=== PATIENT | male | born 1955 | race Caucasian/White ===

== ENCOUNTER → 2018-04-30 10:44 | Outpatient (CLI) | payer OTHER, SELFPAY ==
--- NOTE | 2018-04-30 | DI.ECHO.S_ITS ---
[facility]---------+ [facility] +---------+ : : [address] [place] : : : : [id number] : : : : Phone: [phone]+ Echocardiogram Report + + :Name: MORGAN SOLIS Study Date: 04/30/2018 Height: 70 in : :[facility] Weight: 216 lb : : Gender: Male BSA: 2.2 m2 : :: 1955 Age: 62 yrs BP: 118/70 mmHg: :Reason For Study: Cardiomegaly : : Performed By: Pricilla Eden : :Referring: MARY HARDIN : + + Interpretation Summary 1) Upper normal left ventricular size with low normal systolic function (EF about 50%). 2) LV apex appears trabeculated. Differential diagnosis include LV non- compaction. 3) Grossly, normal right ventricular size and function . 4) There is mild to moderate mitral regurgitation. 5) No prior echo available for comparison. Recommend cardiac MRI to assess for LV non-compaction. Procedure: A two-dimensional transthoracic echocardiogram with color flow and Doppler was performed. The study quality was technically difficult. A contrast injection of Definity was performed to improve assessment of LV function. A total of 1.5 cc of contrast was given. The patient was in normal sinus rhythm during the exam. Left Ventricle: There is normal left ventricular wall thickness. Left ventricular size is at the upper limits of normal. LV apex appears trabeculated. Left ventricular ejection fraction is estimated to be 50 +/- 5%. There are no focal wall motion abnormalities. Diastolic function could not be accurately assessed due to unobtainable data. Right Ventricle: The right ventricle grossly appears normal in size with probable normal systolic function. Atria: The left atrial size is normal. Right atrial size is normal. The interatrial septum is intact with no evidence for an atrial septal defect. Mitral Valve: The mitral valve is grossly normal. There is mild to moderate mitral regurgitation. Aortic Valve: The aortic valve is trileaflet. The aortic valve opens well. There is no aortic valve stenosis. There is mild aortic regurgitation. Tricuspid Valve: The tricuspid valve is normal in structure and function. No tricuspid regurgitation. Pulmonic Valve: The pulmonic valve is not well seen, but is grossly normal. There is trace pulmonic regurgitation. Great Vessels: The aortic root is normal size. The dimensions of the ascending aorta are normal. The IVC is of normal diameter and collapses greater than 50% with a sniff. This suggests a low right atrial pressure of 3 mm Hg. Pericardium/ Pleura There is no pericardial effusion. There is no pleural effusion. MMode/2D Measurements & Calculations LVIDd: 5.6 cm Ao root diam: 3.4 cm LVIDs: 4.1 cm Aortic Jxn: 3.2 cm FS: 27.0 % asc Aorta Diam: 3.3 cm EPSS: 1.1 cm Ao Arch Diam (Prox Trans): 3.2 cm IVSd: 0.82 cm LVPWd: 0.73 cm LV hall. diameter/BSA (cm/m^2): 2.6 LV sys. diameter/BSA (cm/m^2): 1.9 LA dimension: 2.7 cm RA long axis: 4.6 cm LA A2 area: 18.6 cm2 RA area: 16.5 cm2 LA A4 area: 19.1 cm2 RA vol: 50.8 ml LA length (vol): 5.0 cm RA : 23.5 ml/m2 LA vol: 60.2 ml IVC diam: 1.1 cm LA vol index: 27.9 ml/m2 RVDd major: 6.3 cm RVD1 (basal): 4.7 cm RVD2 (mid): 3.7 cm Doppler Measurements & Calculations Ao V2 max: 116.2 cm/sec MV E max parker: 52.9 cm/sec Ao V2 mean: 84.1 cm/sec MV A max parker: 74.0 cm/sec Ao max P.4 mmHg MV E/A: 0.71 Ao mean P.1 mmHg Med Peak E' Parker: 5.9 cm/sec Ao V2 VTI: 23.8 cm E/E' med: 9.0 Lat Peak E' Parker: 8.3 cm/sec E/E' lat: 6.4 E/e' average: 7.7 MV dec time: 0.38 sec MV P1/2t: 112.1 msec PA V2 max: 69.7 cm/sec MV P1/2t max parker: 52.6 cm/sec PA V2 mean: 44.6 cm/sec MVA(P1/2t): 2.0 cm2 PA mean P.96 mmHg PA Accel Time: 0.18 sec Reading Physician:02:34 PM
== END ==
PROVIDERS: Visit Provider Internal Medicine
DX: I51.7 Cardiomegaly (principal); I34.0 Nonrheumatic mitral (valve) insufficiency
CPT/HCPCS: 93306; Q9957

== ENCOUNTER → 2019-02-25 15:03 | Outpatient (CLI) | payer OTHER, SELFPAY | PROVIDERS: Visit Provider Internal Medicine Cardiovascular Disease | DX: I51.9 Heart disease, unspecified (principal); E78.2 Mixed hyperlipidemia; I42.8 Other cardiomyopathies | CPT/HCPCS: 36415 ==

== ENCOUNTER → 2022-04-29 08:18 | Outpatient (CLI) | payer OTHER, SELFPAY ==
--- NOTE | 2022-04-29 | DI.MRI.S_ITS ---
PROCEDURE: MR HAND RT WO CON INDICATIONS: Crushing injury of right index finger, sequela TECHNIQUE: Noncontrast coronal T1 spin echo and T2 fast spin echo with fat saturation, axial proton density fast spin echo and T2 fast spin echo with fat saturation, sagittal T1 spin echo and STIR through the hand and fingers. COMPARISON: None. FINDINGS: Image quality: Excellent. Bones: No acute trabecular bone injury or fracture. A type 2 lunate is seen with degenerative changes at the hamatolunate articulation with cartilage loss and subchondral cystic changes and edema. Cystic changes are seen at the dorsal aspect of the ulnar head as well as at the proximal triquetrum. There are scattered degenerative changes throughout the hand with joint space narrowing subchondral cystic changes, including at the 1st carpometacarpal, 1st metacarpophalangeal, and 1st interphalangeal joints, and throughout the interphalangeal joints of the fingers. Cystic changes are seen in the 2nd metacarpal head. Soft tissues: The flexor and extensor tendons are intact. Visualized muscles demonstrate normal bulk and internal signal. No intramuscular masses identified. No ganglion cysts. IMPRESSION: 1. No acute trabecular bone injury. No significant ligament or tendon injury is seen. 2. Scattered [id number] degenerative changes throughout the hand and wrist. Dictated by: Vik Stevens M.D. on 04/29/2022 at 11:31 Approved by: Vik Stevens M.D. on 04/29/2022 at 11:43
== END ==
PROVIDERS: Referring Provider Counselor Mental Health; Visit Provider Counselor Mental Health
DX: S67.19 Crushing injury of other finger(s) (principal)
CPT/HCPCS: 73218

== ENCOUNTER → 2023-02-03 13:49 | Outpatient (CLI) | payer OTHER, SELFPAY ==
--- NOTE | 2023-02-03 | DI.RAD.S_ITS ---
PROCEDURE: XR HAND RT MIN 3V INDICATIONS: Contusion of right hand, initial encounter TECHNIQUE: 3 views of the hand(s) acquired. COMPARISON: None. FINDINGS: Bones: No fractures or dislocations. Carpal bones are normally aligned. No suspicious bony lesions. Soft tissues: No suspicious soft tissue calcifications. IMPRESSION: No evidence acute bony abnormality of the right hand Dictated by: Madi Yuen M.D. on 02/03/2023 at 15:59 Approved by: Madi Yuen M.D. on 02/03/2023 at 16:01
--- NOTE | 2023-02-03 | DI.RAD.S_ITS ---
PROCEDURE: XR WRIST RT MIN 3V INDICATIONS: Contusion of right hand, initial encounter TECHNIQUE: 3 views of the wrist were acquired. COMPARISON: [facility], , XR HAND RT MIN 3V, 02/03/2023, 13:55. FINDINGS: Bones: No fractures or dislocations. No suspicious bony lesions. Soft tissues: No suspicious soft tissue calcifications. IMPRESSION: No evidence acute bony abnormality of the right wrist. If clinical suspicion and/or symptoms persist, further assessment with repeat plain films, or advanced imaging (e.g., CT, MRI, or bone scan) may be helpful for further assessment. Dictated by: Madi Yuen M.D. on 02/03/2023 at 16:01 Approved by: Madi Yuen M.D. on 02/03/2023 at 16:04
== END ==
PROVIDERS: Referring Provider Family Medicine; Visit Provider Family Medicine
DX: S60.221A Contusion of right hand, initial encounter (principal); X58.XXXA Exposure to other specified factors, initial encounter
CPT/HCPCS: 73110; 73130

== ENCOUNTER → 2023-02-23 13:54 | Outpatient (CLI) | payer OTHER, SELFPAY ==
--- NOTE | 2023-02-23 | DI.RAD.S_ITS ---
PROCEDURE: XR HIP W PEL IF DONE LT 2V INDICATIONS: HIP PAIN TECHNIQUE: AP pelvis with lateral view(s) of the left hip(s). COMPARISON: None. FINDINGS: Bones: No fractures or dislocations. Pelvic ring appears intact. No suspicious bony lesions. Mild symmetric axial hip joint space narrowing with mild periarticular osteophyte formation. Degenerative Soft tissues: The visualized bowel gas pattern is normal. No suspicious soft tissue calcifications. IMPRESSION: Mild symmetric hip joint degeneration. Dictated by: Mitchell Buchanan [facility] Interpreted: Ramiro Leroy MD on 02/23/2023 at 14:58 Transcribed by: ANETTE on 02/23/2023 at 14:58 Approved by: Ramiro Leroy M.D. on 02/23/2023 at 17:01
== END ==
PROVIDERS: PCP Family Medicine; Referring Provider Family Medicine; Visit Provider Family Medicine
DX: M16.12 Unilateral primary osteoarthritis, left hip (principal); M25.552 Pain in left hip
CPT/HCPCS: 73502

== ENCOUNTER 2025-01-04 00:22 | Observation (INO) | payer MEDICARE, SELFPAY ==
[2025-01-04] VITALS (14 sets, daily range): BP systolic 112–141; BP diastolic 68–89; PULSE 65–84; RESP 13–27; TEMP 36.1–36.4; O2SAT 93–100; BMI 33.0
--- NOTE | 2025-01-04 00:26 | DI.RAD.S_ITS ---
PROCEDURE: XR CHEST 1V INDICATIONS: chest pain TECHNIQUE: One view of the chest was acquired. COMPARISON: None. FINDINGS: Surgical changes and devices: None. Lungs and pleura: Lungs are clear. No pleural effusions or pneumothorax. Mediastinum: Mediastinal contours appear normal. Heart size is normal. Bones and chest wall: No suspicious bony lesions. Overlying soft tissues appear unremarkable. IMPRESSION: No acute cardiopulmonary abnormality is seen. Approved by: Jocelyn Mccallum M.D.,Ph.D. on 01/04/2025 at 1:35
--- NOTE | 2025-01-04 00:31 | EKG_ITS ---
[place] [id number] [place] [id number] Test Date: 2025-01-04 Pat Name: Gonzalo Gregoyr Department: [facility] Room: Gender: Male [employer] Supervisor: KIMBERLY : 1955 Requested By: Order Number: [id number] Reading MD: Massimo Santiago MD Measurements Intervals Model Rate: 68 P: 27 DE: 126 QRS: 50 QRSD: 98 T: 59 QT: 406 QTc: 431 Interpretive Statements Normal sinus rhythm Low voltage QRS Cannot rule out Anterior infarct , age undetermined Electronically Signed On 01-05-2025 15:00:27 PDT by Massimo Santiago MD
[2025-01-04 00:48] LABS: Add Manual Diff / Slide Review NO; Basophils Absolute Auto 100 /uL (0-100); Basophils Percent Auto 1.4 % (0-2); Eosinophils Absolute Auto 700 /uL (0-450); Eosinophils Percent Auto 9.6 % (2-4); Hematocrit 43.5 % (41-53); Hemoglobin 15.3 g/dL (13.5-17.5); Lymphocytes Absolute Auto 2500 /uL (1100-4500); Lymphocytes Percent Auto 34.1 % (25-40); Mean Corpuscular HGB Conc 35.1 % (30-36); Mean Corpuscular Hemoglobin 31.4 PG (26-34); Mean Corpuscular Volume 89.5 fL (80-100); Monocytes Absolute Auto 800 /uL (0-900); Monocytes Percent Auto 10.7 % (3-14); Neutrophils Absolute Auto 3200 /uL (1500-7000); Neutrophils Percent Auto 44.2 % (50-75); Platelet Count 185 X10^3/uL (150-400); Red Blood Cell Count 4.86 X10^6/uL (4.5-5.9); Red Cell Distribution Width 13.3 % (11.6-14.8); White Blood Cell Count 7.3 X10^3/uL (4.5-11.0)
--- NOTE | 2025-01-04 00:50 | PC.NURSE ---
pt c/o intermittent c/p >1 month has not followed up with a pcp, at present, pt is aao x 3 resp even and unlabored, in NAD
[2025-01-04 00:54] LABS: INR 0.9 (0.9-1.3); Prothrombin Time 10.4 SECONDS (9.4-12.5)
[2025-01-04 00:57] LABS: PTT Partial Thromboplastin Tim 40 SECONDS (25.1-36.5)
[2025-01-04 00:59] LABS: Alanine Aminotransferase 61 IU/L (<50); Albumin 4.3 g/dL (3.5-5.0); Albumin Globulin Ratio 1.7 (1.0-2.8); Alkaline Phosphatase 100 U/L (38-126); Aspartate Aminotransferase 46 IU/L (17-59); BUN Creatinine Ratio 19.2 (6-22); Bilirubin Total 0.8 mg/dL (0.2-1.3); Blood Urea Nitrogen 20 mg/dL (9-20); Calcium 9.2 mg/dL (8.4-10.2); Carbon Dioxide 24 mmol/L (22-32); Chloride 107 mmol/L (98-107); Creatine Kinase 192 U/L (55-170); Estimated Glomerular Filt Rate > 60 mL/min (>60); Globulin 2.6 g/dL (1.7-4.1); Glucose 105 mg/dL (80-110); HEMOLYSIS 18 (0-50); Lipase 246 U/L (23-300); Potassium 3.9 mmol/L (3.4-5.1); Sodium 139 mmol/L (137-145); Total Protein 6.9 g/dL (6.3-8.2)
[2025-01-04] MEDS: ASPIRIN 81 MG CHEW TAB 324 MG PO (01:02)
[2025-01-04 01:10] LABS: NT-proBNP (BNP-Adult 18+) < 20 pg/mL (<125); Troponin I < 0.012 ng/mL (0.01-0.034)
--- NOTE | 2025-01-04 01:12 | ED.CHESTPAIN ---
HPI - Chest Pain General Chief Complaint: Chest Pain Stated Complaint: Mild chest pain;SOB Time Seen by Provider: 01/04/25 00:44 Source: patient Mode of arrival: Ambulatory Limitations: no limitations History of Present Illness HPI narrative: This is a 69-year-old man with without significant past medical history here with chest pain and shortness of breath. Current symptoms began about 8 hours prior to arrival says he was walking his dog were then began. [place] short of breath and pressure across his chest. Still has some mild symptoms at present. Has been having similar symptoms for a couple of months has not yet seen a doctor for these. He has no history of hypertension diabetes or elevated cholesterol smokes a cigar occasionally and his family history is unknown. He has not had any leg swelling leg pain or recent immobilizations. No fevers no cough. No abdominal symptoms. he has not been seen by a doctor for current symptoms. He does not take medications for erectile dysfunction Related Data Home Medications Medication Instructions Recorded Confirmed No Known Home Medications 01/04/25 01/04/25 Allergies Allergy/AdvReac Type Severity Reaction Status Date / Time No Known Drug Allergies Allergy Verified 01/04/25 00:43 Patient History Social History Smoking Status: Current some day smoker Smoking Status: Current some day smoker tobacco type: cigars Exam Initial Vital Signs Initial Vital Signs: Vital Signs Pulse Rate 75 01/04/25 00:31 Respiratory Rate 27 H 01/04/25 00:31 Pulse Oximetry 99 01/04/25 00:31 Const General: cooperative and No acute distress HENMT Head: normocephalic and atraumatic Neck Neck: supple and No JVD Chest Chest: normal inspection of the chest Resp Effort & Inspection: normal respiratory effort and able to speak in complete sentences Auscultation: clear to auscultation bilaterally Cardio Rate: regular rate Rhythm: regular rhythm Heart Sounds: no murmurs GI Palpation: soft Skin General: warm Neuro General: patient oriented x3 and moves all extremities Speech: speech normal Course Orders Ordered: ED Orders 01/04/25 00:26 XR chest 1V Stat EKG-12 Lead Stat 01/04/25 00:40 Complete Blood Count AUTO DIFF Stat Comprehensive Metabolic Panel Stat Lipase Stat Magnesium Stat NT-proBNP (BNP-Adult 18+) Stat PTT Partial Thromboplastin Robin Stat Prothrombin Time INR Stat Troponin & CK Cardiac Panel Stat 01/04/25 02:58 EKG-12 Lead Stat 01/04/25 03:04 Trop I [Troponin I] Stat Discontinued Medications Aspirin (Aspirin 81 Mg Chew Tab) 324 mg PO NOW ONE Stop: 01/04/25 00:27 Last Admin: 01/04/25 01:02 Dose: 324 mg Documented By: Nitroglycerin (Nitroglycerin Oint 1 Inch/Gm Oint...G.) 0.5 inch TOP NOW ONE Stop: 01/04/25 03:11 Last Admin: 01/04/25 03:21 Dose: 0.5 inch Documented By: RICHARD Reevaluation(s) Reevaluation #1: Patient reporting recurrent chest pain. Repeat EKG and redraw troponin. Discussed disposition, patient has been having exertional chest pain recently, given his age and risk factors and based on patient preference with shared decision-making, he will be admitted for further work Consultations Consultation #1: discussed with the hospitalist, , he accepts the admission Vital Signs Vital signs: Vital Signs - 8 hr 01/04/25 00:31 01/04/25 00:32 01/04/25 00:32 Temperature Pulse Rate 75 76 Respiratory Rate 27 H 20 Blood Pressure 141/89 H Pulse Oximetry 99 99 Oxygen Delivery Method 01/04/25 00:45 01/04/25 01:00 01/04/25 01:00 Temperature 97.6 F Pulse Rate 84 72 Respiratory Rate 19 Blood Pressure 141/89 H 122/80 Pulse Oximetry 97 96 Oxygen Delivery Method Room Air 01/04/25 01:30 01/04/25 01:30 01/04/25 02:00 Temperature Pulse Rate 69 69 Respiratory Rate 16 16 Blood Pressure 125/76 Pulse Oximetry 95 94 Oxygen Delivery Method 01/04/25 02:00 01/04/25 02:30 01/04/25 02:30 Temperature Pulse Rate 67 Respiratory Rate 16 Blood Pressure 114/71 128/68 Pulse Oximetry 95 Oxygen Delivery Method 01/04/25 03:00 01/04/25 03:00 01/04/25 03:30 Temperature Pulse Rate 66 Respiratory Rate 13 Blood Pressure 125/73 118/71 Pulse Oximetry 96 Oxygen Delivery Method 01/04/25 03:30 01/04/25 04:00 01/04/25 04:00 Temperature Pulse Rate 65 67 Respiratory Rate 16 14 Blood Pressure 124/70 Pulse Oximetry 96 96 Oxygen Delivery Method 01/04/25 04:30 01/04/25 04:30 Temperature Pulse Rate 79 Respiratory Rate 13 Blood Pressure 119/74 Pulse Oximetry 93 Oxygen Delivery Method MDM - Chest Pain Lab Data Lab results narrative: troponins are normal x2 CBC with diff and CMP are unremarkable 01/04/25 00:40 01/04/25 00:40 Labs: Lab Results 01/04/25 01/04/25 Range/Units 00:40 03:04 WBC 7.3 (4.5-11.0) X10^3/uL RBC 4.86 (4.5-5.9) X10^6/uL Hgb 15.3 (13.5-17.5) g/dL Hct 43.5 (41-53) % MCV 89.5 (80-100) fL MCH 31.4 (26-34) PG MCHC 35.1 (30-36) % RDW 13.3 (11.6-14.8) % Plt Count 185 (150-400) X10^3/uL Neut % (Auto) 44.2 L (50-75) % Lymph % (Auto) 34.1 (25-40) % [place] % (Auto) 10.7 (3-14) % Eos % (Auto) 9.6 H (2-4) % Baso % (Auto) 1.4 (0-2) % Neut # (Auto) 3200 (7442-3723) /uL Lymph # (Auto) 2500 (4614-0275) /uL [place] # (Auto) 800 (0-900) /uL Eos # (Auto) 700 H (0-450) /uL Baso # (Auto) 100 (0-100) /uL PT 10.4 (9.4-12.5) SECONDS INR 0.9 (0.9-1.3) APTT 40 H (25.1-36.5) SECONDS Sodium 139 (137-145) mmol/L Potassium 3.9 (3.4-5.1) mmol/L Chloride 107 (98-107) mmol/L Carbon Dioxide 24 (22-32) mmol/L BUN 20 (9-20) mg/dL Creatinine 1.04 (0.66-1.25) mg/dL Estimated GFR > 60 (>60) mL/min BUN/Creatinine Ratio 19.2 (6-22) Glucose 105 (80-110) mg/dL Calcium 9.2 (8.4-10.2) mg/dL Magnesium 2.0 (1.6-2.3) mg/dL Total Bilirubin 0.8 (0.2-1.3) mg/dL AST 46 (17-59) IU/L ALT 61 H (<50) IU/L Alkaline Phosphatase 100 (38-126) U/L Total Creatine Kinase 192 H (55-170) U/L Troponin I < 0.012 < 0.012 (0.01-0.034) ng/mL NT-Pro-B Natriuret Pep < 20 (<125) pg/mL Total Protein 6.9 (6.3-8.2) g/dL Albumin 4.3 (3.5-5.0) g/dL Globulin 2.6 (1.7-4.1) g/dL Albumin/Globulin Ratio 1.7 (1.0-2.8) Lipase 246 (23-300) U/L Imaging Data Chest x-ray: My Impression: independent review of chest x-ray no acute findings Radiologist's Impression: per Radiology, no acute abnormality ECG Data Interpretation: ECG shows sinus rhythm at [address] segment changes poor R-wave progression no old EKG available at 3:05 a.m., repeat EKG done for recurrent chest tightness shows normal sinus rhythm at [address] segment changes poor R-wave progression unchanged from baseline MDM Narrative Medical decision making narrative: 69-year-old male who has been having episodes of exertional chest pain and shortness of breath. Does not get regular medical care. Appears to be remarkably healthy and no identified risk factors although family history is unknown. Does not have ST elevation on EKG troponins are normal x2 however he is having recurrent episodes of chest pain including recurrence after his arrival in the emergency department. Based on a moderately concerning history, heart score was calculated to be 4. He will be admitted to the hospitalist service for further workup and anticipate stress test prior to discharge Discharge Plan Departure Patient Disposition: Admitted As Inpatient Clinical Impression: Chest pain Qualifiers: Chest pain type: unspecified Qualified Code(s): R07.9 - Chest pain, unspecified Admit Date/Time: 01/04/25 04:55 Admit Provider: Samuel Orona
--- NOTE | 2025-01-04 03:04 | EKG_ITS ---
[place] [id number] [place] [address] Test Date: 2025-01-04 Pat Name: Gonzalo Gregory Department: [facility] Room: Gender: Male Process Control Technician: KIMBERLY : 1955 Requested By: Order Number: [id number] Reading MD: Massimo Santiago MD Measurements Intervals [place] Rate: 60 P: 55 CT: 136 QRS: 26 QRSD: 100 T: 61 QT: 432 QTc: 432 Interpretive Statements Normal sinus rhythm Low voltage QRS Cannot rule out Anterior infarct , age undetermined Electronically Signed On 01-05-2025 15:00:54 PDT by Massimo Santiago MD
[2025-01-04] MEDS: NITROGLYCERIN OINT 1 INCH/GM OINT...G. 0.5 INCH TOP (03:21)
[2025-01-04 03:49] LABS: Troponin I < 0.012 ng/mL (0.01-0.034)
--- NOTE | 2025-01-04 05:43 | DI.ECHO.S_ITS ---
[facility] : : [address] : : [place] : : [id number] : : Phone: [phone] Echocardiogram Report + :Name: MORGAN SOLIS Study Date: 01/04/2025 Height: 70 in : :[facility] ReadingLocation: Weight: 130 lb : : Gender: Male BSA: 1.7 m2 : :: 1955 Age: 69 yrs BP: 128/76 mmHg: :Reason For Study: SOB : :Ordering Physician: JENNIFER : :KIP KITCHEN Performed By: Pricilla Eden : :Referring: KIP WILLIS : + Interpretation Summary The ejection fraction is estimated to be 55-60%. Diastolic function was not assessed. The right ventricle is normal in size and function. No valvular abnormalities. Pulmonary artery pressures cannot be estimated because of the lack of a measurable TR jet velocity but the IVC suggests a CVP of around 3 mmHg. Procedure: A two-dimensional transthoracic echocardiogram with color flow and Doppler was performed. The study quality was technically adequate. Comparison is made with the echocardiogram of 04-30-18. The heart rate ranged between 69-70 bpm during the study. Left Ventricle: The left ventricle is normal in size and wall thickness. LV apical trabeculations, unchanged from prior echocatrdiogram. The ejection fraction is estimated to be 55-60%. Diastolic function was not assessed. Right Ventricle: The right ventricle is normal in size and function. Atria: The left atrium grossly appears normal in size. Right atrial size is normal. The interatrial septum is not well visualized. Mitral Valve: The mitral valve is normal in structure and function. There is no mitral regurgitation noted. Aortic Valve: The aortic valve is trileaflet. The aortic valve opens well. There is no aortic valve stenosis. No aortic regurgitation is present. Tricuspid Valve: The tricuspid valve is normal in structure and function. No tricuspid regurgitation. Pulmonary artery pressures cannot be estimated because of the lack of a measurable TR jet velocity but the IVC suggests a CVP of around 3 mmHg. Pulmonic Valve: The pulmonic valve is not well seen, but is grossly normal. There is no pulmonic valvular regurgitation. Great Vessels: The aortic root is normal size. The ascending aorta is normal in size. The aortic arch is normal in size. The IVC is of normal diameter and collapses greater than 50% with a sniff. This suggests a low right atrial pressure of 3 mm Hg. Pericardium/ Pleura There is no pericardial effusion. There is no pleural effusion. MMode/2D Measurements & Calculations LVIDd: 5.0 cm LVOT diam: 2.0 cm LVIDs: 3.2 cm Ao root diam: 3.5 cm FS: 34.9 % asc Aorta Diam: 3.6 cm EPSS: 0.62 cm Ao Arch Diam (Prox Trans): 3.0 cm IVSd: 0.83 cm LVPWd: 0.71 cm LV hall. diameter/BSA (cm/m^2): 2.9 LV sys. diameter/BSA (cm/m^2): 1.9 RA long axis: 5.0 cm RVD1 (basal): 2.8 cm RA area: 14.9 cm2 RA vol: 37.4 ml RA : 21.5 ml/m2 Doppler Measurements & Calculations Ao V2 max: 116.7 cm/sec LVOT Max Parker: 72.7 cm/sec Ao V2 mean: 84.3 cm/sec LV V1 max P.1 mmHg Ao max P.5 mmHg LV V1 VTI: 17.2 cm Ao mean P.2 mmHg DAYAN(I,D): 2.2 cm2 Ao V2 VTI: 24.4 cm DAYAN(V,D): 1.9 cm2 sev ratio: 0.71 DAYAN indexed to BSA (cm^2/m^2): 1.2 MV E max parker: 54.9 cm/sec PA V2 max: 71.8 cm/sec MV A max parker: 83.3 cm/sec PA V2 mean: 44.9 cm/sec MV E/A: 0.66 PA mean P.96 mmHg MV dec time: 0.37 sec SV(LVOT): 52.9 ml Reading Physician:01:22 PM
--- NOTE | 2025-01-04 05:46 | P.HP_ITS ---
History of Present Illness History of Present Illness Date Patient Seen: 01/04/25 Chief complaint: Mild chest pain;SOB Narrative: 69 y/o with PMH of hypothyroidism, memory loss in last year, on no prescription medications at present, came to ER after he developed chest tightness and shortness of breath earlier today while walking his dog. Unremarkable labs and non-ischemic EKG. Placed in observation. [facility] Social History household members: spouse Smoking Status: Current some day smoker Meds Home Medications and Allergies Home Medications Medication Instructions Recorded Confirmed Type No Known Home Medications 01/04/25 01/04/25 History Allergies Allergy/AdvReac Type Severity Reaction Status Date / Time No Known Drug Allergies Allergy Verified 01/04/25 00:43 Review of Systems Review of Systems Narrative: General - w/o fever or chills, w/o weight changes CVS - chest pressure, dyspnea RS - w/o cough GI - w/o nausea, vomiting UG - w/o hematuria or dysuria Exam Vital Signs (past 8 hours): - 01/04/25 00:31 01/04/25 00:32 01/04/25 00:32 Temperature Pulse Rate 75 76 Respiratory Rate 27 H 20 Blood Pressure 141/89 H Pulse Oximetry 99 99 Oxygen Delivery Method Oxygen Flow Rate 01/04/25 00:45 01/04/25 01:00 01/04/25 01:00 Temperature 97.6 F Pulse Rate 84 72 Respiratory Rate 19 Blood Pressure 141/89 H 122/80 Pulse Oximetry 97 96 Oxygen Delivery Method Room Air Oxygen Flow Rate 01/04/25 01:30 01/04/25 01:30 01/04/25 02:00 Temperature Pulse Rate 69 69 Respiratory Rate 16 16 Blood Pressure 125/76 Pulse Oximetry 95 94 Oxygen Delivery Method Oxygen Flow Rate 01/04/25 02:00 01/04/25 02:30 01/04/25 02:30 Temperature Pulse Rate 67 Respiratory Rate 16 Blood Pressure 114/71 128/68 Pulse Oximetry 95 Oxygen Delivery Method Oxygen Flow Rate 01/04/25 03:00 01/04/25 03:00 01/04/25 03:30 Temperature Pulse Rate 66 Respiratory Rate 13 Blood Pressure 125/73 118/71 Pulse Oximetry 96 Oxygen Delivery Method Oxygen Flow Rate 01/04/25 03:30 01/04/25 04:00 01/04/25 04:00 Temperature Pulse Rate 65 67 Respiratory Rate 16 14 Blood Pressure 124/70 Pulse Oximetry 96 96 Oxygen Delivery Method Oxygen Flow Rate 01/04/25 04:30 01/04/25 04:30 01/04/25 05:33 Temperature 97.0 F L Pulse Rate 79 69 Respiratory Rate 13 18 Blood Pressure 119/74 128/75 Pulse Oximetry 93 99 Oxygen Delivery Method Oxygen Flow Rate 0 Oxygen Delivery Method Room Air Oxygen Flow Rate 0 Narrative Exam Narrative: General - in no distress HEENT: normocephalic CVS - RRR RS - normal respiratory effort GI - not distended Neuro - memory loss, appropriate mood and affect Objective ECG Impression: NSR 68 Imaging Chest x-ray: My impression: No acute cardiopulmonary abnormality Labs 01/04/25 00:40 01/04/25 00:40 Labs: Laboratory Results - last 24 hr 01/04/25 01/04/25 00:40 03:04 WBC 7.3 RBC 4.86 Hgb 15.3 Hct 43.5 MCV 89.5 MCH 31.4 MCHC 35.1 RDW 13.3 Plt Count 185 Neut % (Auto) 44.2 L Lymph % (Auto) 34.1 [place] % (Auto) 10.7 Eos % (Auto) 9.6 H Baso % (Auto) 1.4 Neut # (Auto) 3200 Lymph # (Auto) 2500 [place] # (Auto) 800 Eos # (Auto) 700 H Baso # (Auto) 100 PT 10.4 INR 0.9 APTT 40 H Sodium 139 Potassium 3.9 Chloride 107 Carbon Dioxide 24 BUN 20 Creatinine 1.04 Estimated GFR > 60 BUN/Creatinine Ratio 19.2 Glucose 105 Calcium 9.2 Magnesium 2.0 Total Bilirubin 0.8 AST 46 ALT 61 H Alkaline Phosphatase 100 Total Creatine Kinase 192 H Troponin I < 0.012 < 0.012 NT-Pro-B Natriuret Pep < 20 Total Protein 6.9 Albumin 4.3 Globulin 2.6 Albumin/Globulin Ratio 1.7 Lipase 246 Assessment & Plan Assessment and plan (1) Chest pain: Qualifiers: Chest pain type: unspecified Qualified Code(s): R07.9 - Chest pain, unspecified Status: Acute Assessment & Plan narrative: Chest Pain - smokes cigars - A1C, lipid panel pending - family history unknown, adopted - had exercise stress test 15 years ago and was normal - had ASA 325 - vitals stable - placed in observation on color television console monitor - echocardiogram pending Hx of hypothyroidism - TSH pending DVT prophylaxis - Lovenox Time-Based Coding :: [TOTAL MINUTES] spent with patient and on the chart (including review of chart, obtaining history, exam, reviewing outside data, placing orders, documenting exam and treatment plan, and counseling patient) on [DATE].
--- NOTE | 2025-01-04 05:58 | PC.NURSE ---
Pt. admitted to room 216, oriented to his room call light , TV & bed controls. Denies any chest pain, but C/O muscle tightness. Still having a little bit of breathing issue. Respiratry rate 20 & SPO2 99%, will monitor & continue plan of care.
[2025-01-04 06:15] LABS: Cholesterol 227 mg/dL (140-199); HDL Cholesterol 32 mg/dL (40-60); LDL Cholesterol Calculated 128 mg/dL (<100); Triglycerides 333 mg/dL (35-150)
[2025-01-04 06:27] LABS: Troponin I < 0.012 ng/mL (0.01-0.034)
[2025-01-04 06:37] LABS: Hemoglobin A1C% w Est Avg Glu 4.7 % (4.0-6.0)
[2025-01-04 07:42] LABS: Free T4, Direct Thyroxine 0.86 ng/dL (0.78-2.19)
--- NOTE | 2025-01-04 08:15 | PC.NURSE ---
Addendum entered by Lenin Golden R.N. 01/04/25 08:26: taking b'fast without c/o. IVSL intact. Original Note: Wakes to name and activity in the room. Offers no overt c/o. Conversant.
[2025-01-04] MEDS: ENOXAPARIN 40 MG/0.4 ML SYRINGE SUBCUT (10:04)
[2025-01-04 11:46] LABS: Troponin I < 0.012 ng/mL (0.01-0.034)
--- NOTE | 2025-01-04 14:06 | P.DS_ITS ---
History of Present Illness History of Present Illness Date Patient Seen: 01/04/25 Time Patient Seen: 08:35 Chief complaint: Mild chest pain;SOB Narrative: 69 y/o with PMH of hypothyroidism, memory loss in last year, on no prescription medications at present, came to ER after he developed chest tightness and shortness of breath earlier today while walking his dog. Unremarkable labs and non-ischemic EKG. Placed in observation. Discharge Providers Provider Date of admission: 01/04/25 04:55 Discharge Date: 01/04/25 Primary care physician: Nico Junior MD Discharge provider: Jeffrey Walter MD Summary Hospital Course Discharge Diagnosis: 1. Chest pain, ruled out for myocardial infarction, resolved 2. Hyperlipidemia 3. Tobacco use disorder Hospital Course: The patient was admitted and monitored on telemetry. He ruled out for myocardial infarction with normal serial cardiac enzymes. His echocardiogram was unremarkable per Dr. Sandrita Piedra of cardiology, with normal left ventricular function and unremarkable heart valves. He had no further chest pain during the hospitalization. His lipids were elevated and statin therapy was advised at discharge, along with outpatient nuclear medicine stress testing for further evaluation. Tobacco cessation was advised. Warning signs that would prompt immediate medical evaluation reviewed. The patient acknowledged understanding, agreement and appreciation of this plan of care, and agreed to call back with any questions or concerns. Status at Discharge Cognitive/behavioral status at discharge: oriented Functional status at discharge: independent ambulation Overall status at discharge: patient is back to baseline Time Spent with Patient Time spent: Greater than 30 minutes Exam Vital Signs (past 8 hours): - 01/04/25 08:00 01/04/25 12:00 Temperature 97.3 F L 97.5 F L Pulse Rate 72 72 Respiratory Rate 16 16 Blood Pressure 112/74 116/70 Pulse Oximetry 98 100 Oxygen Flow Rate 0 0 Oxygen Delivery Method Room Air Oxygen Flow Rate 0 Narrative Exam Narrative: GENERAL: This is a well-nourished, well-developed patient, in no apparent distress. HEAD: Atraumatic. Normocephalic. No temporal or scalp tenderness. EYES: Pupils equal round and reactive. Extraocular motions intact. No scleral icterus. No injection or drainage. ENT: Mucous membranes pink and moist. NECK: Trachea midline. No JVD, bruits or lymphadenopathy. Supple, nontender, no meningeal signs. CARDIOVASCULAR: Regular rate and rhythm without murmurs, gallops, or rubs. RESPIRATORY: Clear to auscultation. GASTROINTESTINAL: Abdomen soft, non-tender, nondistended. EXTREMITIES: No clubbing, cyanosis, or edema. BACK: Nontender without deformity or crepitance. No flank tenderness. NEUROLOGIC: Alert, oriented, speech fluent, full upper and lower motor strength, no focal deficits evident. DERMATOLOGIC: No rashes or skin lesions. Objective Imaging Echo: Radiologist's impression: The ejection fraction is estimated to be 55-60%. Diastolic function was not assessed. The right ventricle is normal in size and function. No valvular abnormalities. Pulmonary artery pressures cannot be estimated because of the lack of a measurable TR jet velocity but the IVC suggests a CVP of around 3 mmHg. Chest x-ray: Radiologist's impression: No acute cardiopulmonary abnormality is seen. Labs 01/04/25 00:40 01/04/25 00:40 Labs: Laboratory Results - last 24 hr 01/04/25 01/04/25 01/04/25 00:40 03:04 05:57 WBC 7.3 RBC 4.86 Hgb 15.3 Hct 43.5 MCV 89.5 MCH 31.4 MCHC 35.1 RDW 13.3 Plt Count 185 Neut % (Auto) 44.2 L Lymph % (Auto) 34.1 [place] % (Auto) 10.7 Eos % (Auto) 9.6 H Baso % (Auto) 1.4 Neut # (Auto) 3200 Lymph # (Auto) 2500 [place] # (Auto) 800 Eos # (Auto) 700 H Baso # (Auto) 100 PT 10.4 INR 0.9 APTT 40 H Sodium 139 Potassium 3.9 Chloride 107 Carbon Dioxide 24 BUN 20 Creatinine 1.04 Estimated GFR > 60 BUN/Creatinine Ratio 19.2 Glucose 105 Hemoglobin A1c 4.7 Calcium 9.2 Magnesium 2.0 Total Bilirubin 0.8 AST 46 ALT 61 H Alkaline Phosphatase 100 Total Creatine Kinase 192 H Troponin I < 0.012 < 0.012 < 0.012 NT-Pro-B Natriuret Pep < 20 Total Protein 6.9 Albumin 4.3 Globulin 2.6 Albumin/Globulin Ratio 1.7 Triglycerides 333 H Cholesterol 227 H LDL Cholesterol, Calc 128 H HDL Cholesterol 32 L Lipase 246 TSH 10.20 H Free T4 0.86 01/04/25 11:00 WBC RBC Hgb Hct MCV MCH MCHC RDW Plt Count Neut % (Auto) Lymph % (Auto) [place] % (Auto) Eos % (Auto) Baso % (Auto) Neut # (Auto) Lymph # (Auto) [place] # (Auto) Eos # (Auto) Baso # (Auto) PT INR APTT Sodium Potassium Chloride Carbon Dioxide BUN Creatinine Estimated GFR BUN/Creatinine Ratio Glucose Hemoglobin A1c Calcium Magnesium Total Bilirubin AST ALT Alkaline Phosphatase Total Creatine Kinase Troponin I < 0.012 NT-Pro-B Natriuret Pep Total Protein Albumin Globulin Albumin/Globulin Ratio Triglycerides Cholesterol LDL Cholesterol, Calc HDL Cholesterol Lipase TSH Free T4 PFSH Social History household members: spouse Smoking Status: Current some day smoker Discharge Plan Discharge Plan Provider Discharge Comment: Light activity advised; tobacco cessation is strongly advised; followup with FREDO Quintana this week to arrange outpatient cardiac stress testing Discharge orders & Medications Discharge Orders: Discharge (Order); Ordered 01/04/25 Ordered By: Jeffrey Walter Prescriptions: New rosuvastatin 20 mg tablet 20 mg PO DAILY Qty: 30 0RF Follow up/Referrals: Nico Junior MD [Primary Care Provider] - Visit Report/Discharge Packet Stand Alone Forms: Patient Portal/API, Stroke Signs & Symptoms Discharge Data Primary Care Provider: Nico Junior Attending Provider: Samuel Orona Admit Date/Time: 01/04/25 04:55 Quality VTE Deep Vein Thrombosis/Pulmonary Embolism Present on Admission: No MIPS - Admit I confirm the patient?s Advance Care Plan is present, Code status is documented, Surrogate decision maker is in patient?s record [If Yes, STOP here]: Yes MIPS - Meds 'Current medications' to include all prescriptions, [id number] products, herbals, cannabis/cannabidiol products, and vitamin/mineral/dietary (nutritional) supplements. I have utilized all available resources to obtain, update, or review the patient?s current medications. [If Yes, STOP here]: Yes MIPS - DC The patient has a history of heart transplant or Left Ventricular Assist Device (LVAD). If yes, STOP here.: No The patient has current or prior documentation of left ventricular ejection fraction (LVEF) less than or equal to 40%, or moderate or severely depressed left ventricular systolic function.: No A. The patient was prescribed or already taking an Angiotensin-Converting Enzyme (GLADYS) Inhibitor, or Angiotensin Receptor Crescencio (ARB).: No B. The patient was prescribed or already taking a beta-crescencio. [If Yes to Both A & B, STOP here]: No Patient not prescribed/taking GLADYS or ARB, no reason given.: No Patient not prescribed/taking beta-crescencio, no reason given.: No PROFEE Charge Codes Discharge inpatient/observation: [id number]
--- NOTE | 2025-01-04 15:05 | CM.DANOTE ---
Patient is a 69 yo male who was admitted OBS Status on 01/04/25 for Chest pain r/o. Pt has [facility] under [employer] for insurance and his PCP is Dr. Nico Junior. EMR was reviewed. Per MD, pt with hypertension and some reported memory loss in the past year and admitted for SOB and chest pain after walking his dog and pt a currently daily smoker. Echo results normal and pt ambulating in room independently and pt medically stable to d/c home today with no identified barriers to discharge. Per RN, discharge instructions provided bedside and no concerns noted. Plan: Patient to d/c home via family POV today with outpt f/u and no further SW needs at this time. Pt has no hx of admission at [facility]. JUSTEN Calderon
== END 2025-01-04 15:45 | disposition home or self-care (01) ==
LOC: ED 04:04 → AC 04:56
PROVIDERS: Internal Medicine; Admitting Provider Internal Medicine; Emergency Provider Emergency Medicine; PCP Family Medicine; Referring Provider Emergency Medicine; Visit Provider Internal Medicine
DX: R07.9 Chest pain, unspecified (principal); R06.02 Shortness of breath; Z72.0 Tobacco use; E78.5 Hyperlipidemia, unspecified
CPT/HCPCS: 36415; 71045; 80053; 80061; 82550; 83036; 83690; 83735; 83880; 84439; 84443; 84484; 85025; 85610; 85730; 93005; 93010; 93306; 96372; 99284; 99406; G0378; J1650